=== PATIENT | male | born 1990 | race Caucasian/White ===

== ENCOUNTER 2018-02-08 12:07 | Emergency (ER) | payer MEDICAID ==
[~2018-02-08] VITALS: Ht 177.8 cm; Wt 87.0 kg
[2018-02-08] MEDS ORDERED: TETanus/Pertussis (Acell)/Diphther VAC/PF (Tdap-Adult) 0.5ml syringe IM ONE (12:25)
[2018-02-08] MEDS ORDERED: LIDOcaine 1.5% w/epinephrine 1:200,000 5ml ampul IJ ONE (12:25)
[2018-02-08] MEDS ORDERED: AMOX-580 PO (13:16)
[2018-02-08 14:24] VITALS: BP 151/80
== END 2018-02-08 14:28 | disposition home or self-care (01) ==
LOC: ER 12:08
DX: S01.451A Open bite of right cheek and temporomandibular area, initial encounter (principal); S00.81XA Abrasion of other part of head, initial encounter; W54.0XXA Bitten by dog, initial encounter; Y93.89 Activity, other specified; Y92.89 Other specified places as the place of occurrence of the external cause; Y99.8 Other external cause status
CPT/HCPCS: 12014; 90471; 90715; 99284; A6449; J3490

== ENCOUNTER 2018-03-01 12:14 | Emergency (ER) | payer MEDICAID ==
[~2018-03-01] VITALS: Ht 177.8 cm; Wt 82.0 kg
[~2018-03-01 12:14] MED LIST: AMOX-580 PO
[2018-03-01 12:24] VITALS: BP 146/92
[2018-03-01] MEDS ORDERED: LORazepam 1 MG tablet PO ONE (12:45)
== END 2018-03-01 13:27 | disposition home or self-care (01) ==
LOC: ER 12:16
DX: R00.2 Palpitations (principal); R00.0 Tachycardia, unspecified; T43.625A Adverse effect of amphetamines, initial encounter; Z79.899 Other long term (current) drug therapy; Y92.89 Other specified places as the place of occurrence of the external cause
CPT/HCPCS: 93005; 99283